=== PATIENT | male | born 1955 | race Asian ===

== ENCOUNTER 2018-09-06 06:30 | Day surgery (SDC) | payer OTHER ==
[2018-09-05 16:53] VITALS: BMI 21.9
[2018-09-06 07:17] VITALS: TEMP 97.4
[2018-09-06] MEDS ORDERED: MIDAZOLAM HCL 2 MG/2 ML SINGLE DOSE VIAL ONE ×2 (07:48→08:20)
[2018-09-06] MEDS ORDERED: oxyCODONE HCL 5 MG TABLET PO PRN (08:29)
[2018-09-06] MEDS ORDERED: DEXTROSE 5%-0.45% SALINE 1,000 ML IV SCH (08:30)
--- NOTE | 2018-09-06 08:31 | OP ---
Operative Note - Note: Operative Date: 09/06/18 Pre-Operative Diagnosis: rt kid stone Operation: ESWL Findings: RK stone Post-Operative Diagnosis: Same as Pre-op Surgeon: Harrison Joyce Anesthesia: General Estimated Blood Loss (mls): 0 Operative Report Dictated: Yes
--- NOTE | 2018-09-06 09:49 | OP ---
DATE OF OPERATION: 09/06/2018 PREOPERATIVE DIAGNOSIS: Right kidney stone. POSTOPERATIVE DIAGNOSIS: Right kidney stone. PROCEDURE: Extracorporeal shock wave lithotripsy. SURGEON: Becky Kennedy MD INDICATION: Patient is a 63-year-old male with history of recurrent nephrolithiasis, now with a 6-mm right mid-pole stone on ultrasound and elected to undergo ESWL of the stone. After treatment options were reviewed and consent was obtained, patient taken to the OR and placed supine on the lithotripsy table. Under active ultrasound guidance, a stone was seen in the mid-pole, approximately 6 mm in size; 2500 shocks were delivered under continuous ultrasound guidance to fragment the stone. Patient tolerated the procedure well, then was transferred to recovery room in stable condition. There were no complications. There was no blood loss. BECKY KENNEDY M.D. [id number]
[2018-09-06 11:42] VITALS: BP 133/70; PULSE 69
== END 2018-09-06 12:33 | disposition home or self-care (01) ==
LOC: JASU-SURG 06:30
PROVIDERS: ATTEND Urology
PROC: 0TF3XZZ Fragmentation in Right Kidney Pelvis, External Approach (ICD-10-PCS; principal; 2018-09-06 08:00)
DX: N20.0 Calculus of kidney (principal)
CPT/HCPCS: 82962

== ENCOUNTER 2021-10-09 04:46 | Day surgery (SDC) | payer OTHER ==
[2021-10-06 16:24] VITALS: BMI 22.8
[2021-10-09] MEDS ORDERED: TROPICAMIDE 1% OPHTH SOLN 15 ML BOTTLE ONE (06:58)
[2021-10-09] MEDS ORDERED: CIPROFLOXACIN 0.3% EYE DROPS 5 ML BOTTLE ONE (06:58)
[2021-10-09] MEDS ORDERED: KETOROLAC TROMETHAMINE 0.5% EYE DROP 1 DROP DROPS ONE (06:58)
[2021-10-09] MEDS ORDERED: PHENYLEPHRINE 2.5% OPTHALMIC DROP BOTTLE ONE (06:59)
[2021-10-09] MEDS ORDERED: LIDOCAINE HCL/PF 2% SDV 5ML VIAL ONE (07:18)
[2021-10-09] MEDS ORDERED: EPINEPHrine/PF 1 MG/1 ML (1:1,000) AMPULE ONE (07:19)
[2021-10-09] MEDS ORDERED: LIDOCAINE HCL/PF 1% SDV 5ML VIAL ONE (07:19)
[2021-10-09] MEDS ORDERED: TOBRAMYCIN/DEXAMETHASONE OPHTH. OINTMENT 1 TUBE ONE (07:19)
[2021-10-09] MEDS ORDERED: POVIDONE-IODINE 5% OPHTHALMIC PREP 30 ML SOLUTION ONE (07:20)
[2021-10-09] MEDS: CIPROFLOXACIN HCL 0.3% OPHTH 2.5ML BOTTLE OP SCH ×2 (07:25→07:30)
[2021-10-09] MEDS: KETOROLAC TROMETHAMINE 0.5% EYE DROP 1 DROP DROPS OP SCH ×2 (07:25→07:30)
[2021-10-09] MEDS: PHENYLEPHRINE 2.5% OPHTH SOLN 15 ML BOTTLE OP SCH ×2 (07:25→07:30)
[2021-10-09] MEDS: TROPICAMIDE 1% OPHTH SOLN 15 ML BOTTLE OP SCH ×3 (07:25→07:35)
[2021-10-09] MEDS ORDERED: ACETAMINOPHEN 325 MG TABLET (FP) PO PRN (07:25)
[2021-10-09] MEDS ORDERED: MIDAZOLAM HCL 2 MG/2 ML SINGLE DOSE VIAL ONE ×2 (08:54→09:28)
[2021-10-09] MEDS ORDERED: TETRACAINE 0.5% OPHTH SOLN 2 ML BOTTLE TP ONE (09:22)
[2021-10-09] MEDS ORDERED: POVIDONE-IODINE 5% OPHTHALMIC PREP 30 ML SOLUTION OS ONE (09:25)
[2021-10-09] MEDS ORDERED: ONDANSETRON 4 MG/2 ML VIAL IVPUSH PRN (09:27)
[2021-10-09] MEDS ORDERED: LACTATED RINGERS SOLUTION 1,000 ML IV SCH (09:30)
[2021-10-09] MEDS ORDERED: BSS (NA/CA/MG/K) BALANCED SALT SOLUTION OPHTH SOLN 15 ML BOTTLE OS ONE (09:31)
[2021-10-09] MEDS ORDERED: LIDOCAINE HCL 1% PRESERVATIVE FREE - 30ML VIAL IO ONE (09:32)
[2021-10-09] MEDS ORDERED: CHONDROITIN SU A/HYALUR SOD 1 KIT IO ONE (09:32)
[2021-10-09] MEDS ORDERED: EPINEPHrine/PF 1 MG/1 ML (1:1,000) AMPULE SQ ONE (09:39)
[2021-10-09] MEDS ORDERED: TOBRAMYCIN/DEXAMETHASONE OPHTH. OINTMENT 1 TUBE TP ONE (09:47)
[2021-10-09 11:13] VITALS: BP 140/75; PULSE 86; TEMP 98.4
== END 2021-10-09 11:36 | disposition home or self-care (01) ==
LOC: JASU-SURG 04:46
PROVIDERS: ATTEND Ophthalmology
PROC: 08RK3JZ Replacement of Left Lens with Synthetic Substitute, Percutaneous Approach (ICD-10-PCS; principal; 2021-10-09 08:30)
DX: H25.12 Age-related nuclear cataract, left eye (principal)
CPT/HCPCS: 82962

== ENCOUNTER 2022-01-08 04:24 | Day surgery (SDC) | payer OTHER ==
[2022-01-06 12:35] VITALS: BMI 22.8
[~2022-01-08 04:24] MED LIST: EPINEPHrine/PF 1 MG/1 ML (1:1,000) AMPULE SQ ONE; TOBRAMYCIN 0.3% OPHTH OINT 3.5 GM OD ONE
[2022-01-08] MEDS ORDERED: DICLOFENAC SODIUM 0.1% OPHTHALMIC 2.5ML BOTTLE ONE (06:28)
[2022-01-08] MEDS ORDERED: CIPROFLOXACIN 0.3% EYE DROPS 5 ML BOTTLE ONE (06:28)
[2022-01-08] MEDS ORDERED: TROPICAMIDE 1% OPHTH SOLN 15 ML BOTTLE ONE (06:28)
[2022-01-08] MEDS ORDERED: PHENYLEPHRINE 2.5% OPTHALMIC DROP BOTTLE ONE (06:29)
[2022-01-08] MEDS ORDERED: DICLOFENAC SODIUM 0.1% OPHTHALMIC 2.5ML BOTTLE OD ONE ×3 (06:40→06:50)
[2022-01-08] MEDS ORDERED: PHENYLEPHRINE 2.5% OPTHALMIC DROP BOTTLE OD ONE ×3 (06:40→06:50)
[2022-01-08] MEDS ORDERED: TROPICAMIDE 1% OPHTH SOLN 15 ML BOTTLE OD ONE ×3 (06:40→06:50)
[2022-01-08] MEDS ORDERED: CIPROFLOXACIN 0.3% EYE DROPS 5 ML BOTTLE OD ONE ×3 (06:40→06:50)
[2022-01-08] MEDS ORDERED: LIDOCAINE HCL/PF 1% SDV 5ML VIAL ONE (07:06)
[2022-01-08] MEDS ORDERED: CHONDROITIN SU A/HYALUR SOD 1 KIT ONE (07:06)
[2022-01-08] MEDS ORDERED: TOBRAMYCIN/DEXAMETHASONE OPHTH. OINTMENT 1 TUBE ONE (07:15)
[2022-01-08] MEDS ORDERED: TETRACAINE 0.5% OPHTH SOLN 2 ML BOTTLE ONE (07:16)
[2022-01-08] MEDS ORDERED: ACETAMINOPHEN 325 MG TABLET (FP) PO PRN (07:16)
[2022-01-08] MEDS ORDERED: POVIDONE-IODINE 5% OPHTHALMIC PREP 30 ML SOLUTION ONE (07:16)
[2022-01-08] MEDS ORDERED: EPINEPHrine/PF 1 MG/1 ML (1:1,000) AMPULE ONE (07:16)
[2022-01-08] MEDS ORDERED: TROPICAMIDE 1% OPHTH SOLN 15 ML BOTTLE OP SCH (07:30)
[2022-01-08] MEDS ORDERED: CIPROFLOXACIN HCL 0.3% OPHTH 2.5ML BOTTLE OP SCH (07:30)
[2022-01-08] MEDS ORDERED: DICLOFENAC SODIUM 0.1% OPHTHALMIC 2.5ML BOTTLE OP SCH (07:30)
[2022-01-08] MEDS ORDERED: PHENYLEPHRINE 2.5% OPHTH SOLN 15 ML BOTTLE OP SCH (07:30)
[2022-01-08] MEDS ORDERED: MIDAZOLAM HCL 2 MG/2 ML SINGLE DOSE VIAL ONE ×2 (07:40→07:51)
[2022-01-08] MEDS ORDERED: TETRACAINE 0.5% OPHTH SOLN 2 ML BOTTLE TP ONE (07:45)
[2022-01-08] MEDS ORDERED: TETRACAINE 0.5% HCL 0.6ML DROPPER.BOTTLE TP ONE (07:45)
[2022-01-08] MEDS ORDERED: POVIDONE-IODINE 5% OPHTHALMIC PREP 30 ML SOLUTION OD ONE (07:47)
[2022-01-08] MEDS ORDERED: BSS (NA/CA/MG/K) BALANCED SALT SOLUTION OPHTH SOLN 15 ML BOTTLE OD ONE (07:49)
[2022-01-08] MEDS ORDERED: BSS (NA/CA/MG/K) BALANCED SALT SOLUTION OPHTH SOLN 15 ML BOTTLE IO ONE (07:49)
[2022-01-08] MEDS ORDERED: LIDOCAINE HCL 1% PRESERVATIVE FREE - 30ML VIAL IO ONE ×2 (07:51)
[2022-01-08] MEDS ORDERED: CHONDROITIN SU A/HYALUR SOD 1 KIT IO ONE (07:53)
[2022-01-08] MEDS ORDERED: EPINEPHrine/PF 1 MG/1 ML (1:1,000) AMPULE SQ ONE (07:59)
[2022-01-08] MEDS ORDERED: TOBRAMYCIN/DEXAMETHASONE OPHTH. OINTMENT 1 TUBE TP ONE (08:12)
[2022-01-08] MEDS ORDERED: TOBRAMYCIN 0.3% OPHTH OINT 3.5 GM OD ONE (08:12)
[2022-01-08 09:28] VITALS: BP 146/73; PULSE 73; TEMP 97.7
== END 2022-01-08 09:51 | disposition home or self-care (01) ==
LOC: JASU-SURG 04:24
PROVIDERS: ATTEND Ophthalmology
PROC: 08RJ3JZ Replacement of Right Lens with Synthetic Substitute, Percutaneous Approach (ICD-10-PCS; principal; 2022-01-08 07:30)
DX: H25.11 Age-related nuclear cataract, right eye (principal); E11.9 Type 2 diabetes mellitus without complications; Z79.84 Long term (current) use of oral hypoglycemic drugs
CPT/HCPCS: 82962

== ENCOUNTER 2022-02-17 04:08 | Day surgery (SDC) | payer OTHER ==
[2022-02-11 17:11] VITALS: BMI 22.8
[2022-02-17] MEDS ORDERED: PROPOFOL 20 ML ONE (07:09)
[2022-02-17] MEDS ORDERED: MIDAZOLAM HCL 2 MG/2 ML SINGLE DOSE VIAL ONE (07:09)
[2022-02-17] MEDS ORDERED: SUCCINYLCHOLINE CHLORIDE 200 MG/10 ML SYRINGE ONE (07:09)
[2022-02-17] MEDS ORDERED: ceFAZolin SODIUM 1 GM VIAL ONE (07:45)
[2022-02-17] MEDS ORDERED: ceFAZolin SODIUM 1 GM VIAL IVPB ONE (07:47)
[2022-02-17] MEDS ORDERED: oxyCODONE HCL 5 MG TABLET PO PRN (08:10)
[2022-02-17] MEDS ORDERED: DEXTROSE 5%-0.45% SALINE 1,000 ML IV SCH (08:15)
[2022-02-17] MEDS ORDERED: ONDANSETRON *ODT* 4 MG TABLET SL ONE (10:01)
[2022-02-17] MEDS ORDERED: ONDANSETRON 4 MG TABLET PO ONE (10:03)
[2022-02-17 10:05] VITALS: BP 130/65; PULSE 80; TEMP 97.5
== END 2022-02-17 10:45 | disposition home or self-care (01) ==
LOC: JASU-SURG 04:08
PROVIDERS: ATTEND Urology
PROC: 0TF7XZZ Fragmentation in Left Ureter, External Approach (ICD-10-PCS; principal; 2022-02-17 07:30)
DX: N20.1 Calculus of ureter (principal); I10 Essential (primary) hypertension; E11.9 Type 2 diabetes mellitus without complications